=== PATIENT | female | born 1945 | race Caucasian/White ===

== ENCOUNTER 2022-04-04 09:03 | Day surgery (SDC) | payer BC, OTHER ==
[2022-04-03 10:20] VITALS: BMI 29.6
[2022-04-04] MEDS ORDERED: FENTANYL CITRATE/PF 50 MCG/ML VIAL ONE ×3 (12:38→17:13)
[2022-04-04] MEDS ORDERED: BUPIVACAINE LIPOSOME/PF (EXPAREL) 266 MG/20 ML VIAL ONE (12:39)
[2022-04-04] MEDS ORDERED: BUPIVACAINE HCL/PF 0.5% (5MG/ML) 10 ML VIAL ONE (12:39)
[2022-04-04] MEDS ORDERED: MIDAZOLAM HCL 2 MG/2 ML SINGLE DOSE VIAL ONE ×4 (12:39→15:54)
[2022-04-04] MEDS ORDERED: SODIUM CHLORIDE 0.9% P/F 10 ML VIAL IJ ONE (13:02)
[2022-04-04] MEDS ORDERED: BUPIVACAINE HCL 50 ML ONE (13:20)
[2022-04-04] MEDS ORDERED: ceFAZolin SODIUM 1 GM VIAL ONE ×2 (13:31→21:42)
[2022-04-04] MEDS ORDERED: TRANEXAMIC ACID 1000 MG/10 ML VIAL ONE (13:31)
[2022-04-04] MEDS ORDERED: ONDANSETRON 4 MG/2 ML VIAL ONE (13:31)
[2022-04-04] MEDS ORDERED: DEXAMETHASONE SOD PHOSPHATE 4 MG/1 ML VIAL ONE (13:31)
[2022-04-04] MEDS ORDERED: VANCOMYCIN 1,000 MG VIAL (RESTRICTED TO ID ONLY) ONE (13:37)
[2022-04-04] MEDS ORDERED: PROPOFOL 20 ML ONE ×2 (13:39→15:26)
[2022-04-04] MEDS ORDERED: fentaNYL CITRATE 250 MCG/5 ML VIAL ONE (15:55)
[2022-04-04] MEDS ORDERED: ACETAMINOPHEN INJECTION 100 ML IVPB ONE (16:55)
[2022-04-04] MEDS ORDERED: ONDANSETRON 4 MG/2 ML VIAL IVPUSH PRN ×2 (16:56→16:59)
[2022-04-04] MEDS ORDERED: oxyCODONE HCL 5 MG TABLET PO PRN (16:57)
[2022-04-04] MEDS ORDERED: ACETAMINOPHEN 1000 MG/100 ML BAG IVPB ONE (16:57)
[2022-04-04] MEDS ORDERED: ALBUTEROL SO4 HFA INHALER IH PRN (16:58)
[2022-04-04] MEDS ORDERED: PATIENT'S OWN MEDICATION (NON-FORMULARY) (Fluticasone Propionate [Flovent Hfa] 44 MCG Inha IH PRN (16:58)
[2022-04-04] MEDS ORDERED: MAGNESIUM HYDROX 2400MG/30ML ORAL SUSPENSION 30 ML CUP PO PRN (16:59)
[2022-04-04] MEDS ORDERED: MAG HYDROX/AL HYDROX/SIMETH 30 ML UNIT-DOSE CUP PO PRN (16:59)
[2022-04-04] MEDS ORDERED: LACTATED RINGERS SOLUTION 1,000 ML IV SCH (17:00)
[2022-04-04] MEDS ORDERED: LABETALOL HCL 5 MG/1 ML (100MG/20 ML VIAL) ONE (17:02)
[2022-04-04] MEDS ORDERED: diazePAM 5 MG TABLET PO PRN (17:03)
[2022-04-04] MEDS: LABETALOL HCL 5 MG/1 ML (100MG/20 ML VIAL) IVPUSH ONE ×2 (17:03→17:13)
[2022-04-04] MEDS ORDERED: diazePAM CARPU-JECT 10 MG/2 ML DISP.SYRIN IVPUSH PRN (17:04)
[2022-04-04] MEDS ORDERED: KETOROLAC TROMETHAMINE 30 MG/1 ML VIAL ONE (17:07)
[2022-04-04] MEDS: KETOROLAC TROMETHAMINE 30 MG/1 ML VIAL IVPUSH SCH ×2 (17:10→23:21)
[2022-04-04] MEDS ORDERED: DEXTROSE 5%-WATER - 100 ML IVPB ONE (21:42)
[2022-04-04] MEDS ORDERED: MOMETASONE FUROATE 220 MCG/IH INHALER IH PRN (22:00)
[2022-04-04] MEDS: SENNOSIDES/DOCUSATE COMBO (SENNA PLUS) TABLET (UD) PO SCH (22:23)
[2022-04-04] MEDS: oxyCODONE HCL 10 MG SUSTAINED ACTING TABLET PO SCH (22:23)
[2022-04-04] MEDS: ATORVASTATIN CA 20 MG TABLET (FP) PO SCH (22:24)
[2022-04-04] MEDS: ASPIRIN 81 MG CHEWABLE TABLETS PO SCH (22:24)
[2022-04-04] MEDS: LABETALOL HCL 100 MG TABLET (FP) PO SCH (22:25)
[2022-04-04] MEDS: CEFAZOLIN 2 GM in DEXTROSE 5%-WATER - 100 ML IVPB SCH (22:26)
[2022-04-04] MEDS: ACETAMINOPHEN 500 MG TABLET (FP) PO SCH (23:22)
[2022-04-05] MEDS ORDERED: ceFAZolin SODIUM 1 GM VIAL ONE ×2 (04:11→09:58)
[2022-04-05] MEDS ORDERED: DEXTROSE 5%-WATER - 100 ML IVPB ONE ×2 (04:11→09:57)
[2022-04-05] MEDS: ACETAMINOPHEN 500 MG TABLET (FP) PO SCH ×5 (04:17→23:58)
[2022-04-05] MEDS: CEFAZOLIN 2 GM in DEXTROSE 5%-WATER - 100 ML IVPB SCH ×2 (04:18→10:09)
[2022-04-05] MEDS: LEVOTHYROXINE NA 100 MCG TABLET (FP) PO SCH (06:28)
[2022-04-05 08:07] LABS: CALCIUM 8.9 mg/dl (8.5-10); CREATININE 1.1 mg/dl (0.55-1.3)
[2022-04-05 08:14] LABS: HEMATOCRIT 33.3 % (32.4-45.2); MCH 30.3 pg (25.7-33.7); MEAN CELL VOLUME 91.6 fl (80-96); MEAN PLT VOLUME 6.9 fl (7.5-11.1); RBC 3.63 10^6/uL (3.60-5.2); RDW 15.2 % (11.6-15.6); WHITE BLOOD COUNT 10.3 10^3/uL (4.0-10.8)
[2022-04-05] MEDS: oxyCODONE HCL 5 MG TABLET PO PRN ×3 (08:35→18:53)
[2022-04-05] MEDS: LABETALOL HCL 100 MG TABLET (FP) PO SCH ×2 (10:07→21:30)
[2022-04-05] MEDS: TRIAMTERENE AND HCTZ - 37.5 MG/25 MG CAPSULE PO SCH (10:07)
[2022-04-05] MEDS: oxyCODONE HCL 10 MG SUSTAINED ACTING TABLET PO SCH ×2 (10:07→21:30)
[2022-04-05] MEDS: PANTOPRAZOLE 40 MG TABLET PO SCH (10:07)
[2022-04-05] MEDS: CELECOXIB 200 MG CAPSULE PO SCH (10:07)
[2022-04-05] MEDS: LISINOPRIL 20 MG TABLET PO SCH (10:07)
[2022-04-05] MEDS: ASPIRIN 81 MG CHEWABLE TABLETS PO SCH ×2 (10:09→21:30)
[2022-04-05] MEDS: SENNOSIDES/DOCUSATE COMBO (SENNA PLUS) TABLET (UD) PO SCH ×2 (10:09→21:31)
[2022-04-05] MEDS: ATORVASTATIN CA 20 MG TABLET (FP) PO SCH (21:30)
[2022-04-06] MEDS: oxyCODONE HCL 5 MG TABLET PO PRN (06:04)
[2022-04-06] MEDS: ACETAMINOPHEN 500 MG TABLET (FP) PO SCH ×2 (06:05→11:18)
[2022-04-06] MEDS: LEVOTHYROXINE NA 100 MCG TABLET (FP) PO SCH (07:59)
[2022-04-06 08:08] VITALS: BP 113/43; PULSE 67; TEMP 98.4
[2022-04-06 08:20] LABS: HEMOGLOBIN 10.3 G/dL (10.7-15.3); MCH 31.5 pg (25.7-33.7); MCHC 34.4 g/dl (32.0-36.0); MEAN CELL VOLUME 91.4 fl (80-96); MEAN PLT VOLUME 7.2 fl (7.5-11.1); PLATELET COUNT 297.8 10^3/uL (134-434); RBC 3.28 10^6/uL (3.60-5.2); RDW 15.2 % (11.6-15.6); WHITE BLOOD COUNT 8.7 10^3/uL (4.0-10.8)
[2022-04-06] MEDS: SENNOSIDES/DOCUSATE COMBO (SENNA PLUS) TABLET (UD) PO SCH (09:49)
[2022-04-06] MEDS: oxyCODONE HCL 10 MG SUSTAINED ACTING TABLET PO SCH (09:49)
[2022-04-06] MEDS: PANTOPRAZOLE 40 MG TABLET PO SCH (09:49)
[2022-04-06] MEDS: CELECOXIB 200 MG CAPSULE PO SCH (09:50)
[2022-04-06] MEDS: ASPIRIN 81 MG CHEWABLE TABLETS PO SCH (09:50)
[2022-04-06] MEDS: TRIAMTERENE AND HCTZ - 37.5 MG/25 MG CAPSULE PO SCH (09:53)
[2022-04-06] MEDS: LABETALOL HCL 100 MG TABLET (FP) PO SCH (09:54)
[2022-04-06] MEDS: LISINOPRIL 20 MG TABLET PO SCH (09:54)
== END 2022-04-06 14:09 | disposition home or self-care (01) ==
LOC: FASUSAT 09:03 → FM/S 17:55 → FASUSAT 04-06 14:09
PROVIDERS: ATTEND Orthopaedic Surgery Adult Reconstructive Orthopaedic Surgery
PROC: 0SRD0J9 Replacement of Left Knee Joint with Synthetic Substitute, Cemented, Open Approach (ICD-10-PCS; principal; 2022-04-04 14:04)
DX: M17.12 Unilateral primary osteoarthritis, left knee (principal); M21.062 Valgus deformity, not elsewhere classified, left knee; J45.909 Unspecified asthma, uncomplicated; E03.9 Hypothyroidism, unspecified
CPT/HCPCS: 27447; C1776; 36415; 73560-TC-LT-FY; 80048; 85027; 88305-TC; 88311-TC; 94760; 97010-GP; 97116-GP; 97161-GP

== ENCOUNTER 2023-02-27 11:05 | Day surgery (SDC) | payer OTHER ==
[2023-02-18 15:50] VITALS: BMI 31.5
[2023-02-27] MEDS ORDERED: MIDAZOLAM HCL 2 MG/2 ML SINGLE DOSE VIAL ONE ×3 (11:10→14:31)
[2023-02-27] MEDS ORDERED: BUPIVACAINE LIPOSOME/PF (EXPAREL) 266 MG/20 ML VIAL ONE (12:00)
[2023-02-27] MEDS ORDERED: BUPIVACAINE HCL/PF 0.5% (5 MG/ML) 30 ML VIAL IJ ONE (12:00)
[2023-02-27] MEDS ORDERED: BUPIVACAINE HCL/PF 0.5% (5MG/ML) 10 ML VIAL ONE (12:59)
[2023-02-27] MEDS ORDERED: TRANEXAMIC ACID 1000 MG/10 ML VIAL ONE (16:04)
[2023-02-27] MEDS ORDERED: KETOROLAC TROMETHAMINE 30 MG/1 ML VIAL ONE (16:04)
[2023-02-27] MEDS ORDERED: DEXAMETHASONE SOD PHOSPHATE 4 MG/1 ML VIAL ONE (16:04)
[2023-02-27] MEDS ORDERED: PHENYLEPHRINE HCL 10 MG/1 ML SINGLE DOSE VIAL ONE (16:04)
[2023-02-27] MEDS ORDERED: ONDANSETRON 4 MG/2 ML VIAL ONE (16:04)
[2023-02-27] MEDS ORDERED: ceFAZolin SODIUM 1 GM VIAL ONE (16:04)
[2023-02-27] MEDS ORDERED: ACETAMINOPHEN INJECTION 100 ML IVPB ONE (16:27)
[2023-02-27] MEDS ORDERED: FENTANYL CITRATE/PF 50 MCG/ML VIAL ONE ×2 (16:28→16:48)
[2023-02-27] MEDS ORDERED: oxyCODONE HCL 5 MG TABLET PO PRN (16:33)
[2023-02-27] MEDS ORDERED: ACETAMINOPHEN 1000 MG/100 ML BAG IVPB ONE (16:33)
[2023-02-27] MEDS ORDERED: ONDANSETRON 4 MG/2 ML VIAL IVPUSH PRN ×2 (16:33→16:41)
[2023-02-27] MEDS ORDERED: ALBUTEROL SO4 HFA INHALER IH PRN (16:40)
[2023-02-27] MEDS ORDERED: TRIAMTERENE AND HCTZ - 37.5 MG/25 MG CAPSULE PO PRN (16:40)
[2023-02-27] MEDS ORDERED: MAG HYDROX/AL HYDROX/SIMETH 30 ML UNIT-DOSE CUP PO PRN (16:41)
[2023-02-27] MEDS ORDERED: MAGNESIUM HYDROX 2400MG/30ML ORAL SUSPENSION 30 ML CUP PO PRN (16:41)
[2023-02-27] MEDS: ACETAMINOPHEN 500 MG TABLET (FP) PO SCH ×2 (16:42→22:07)
[2023-02-27] MEDS ORDERED: LACTATED RINGERS SOLUTION 1,000 ML IV SCH (16:45)
[2023-02-27] MEDS: oxyCODONE HCL 5 MG TABLET PO PRN ×2 (17:00→22:07)
[2023-02-27] MEDS: oxyCODONE HCL 10 MG SUSTAINED ACTING TABLET PO SCH (21:17)
[2023-02-27] MEDS: SENNOSIDES/DOCUSATE COMBO (SENNA PLUS) TABLET (UD) PO SCH (21:18)
[2023-02-27] MEDS: LABETALOL HCL 100 MG TABLET (FP) PO SCH (21:18)
[2023-02-27] MEDS: ATORVASTATIN CA 20 MG TABLET (FP) PO SCH (21:18)
[2023-02-27] MEDS: HEPARIN NA (PORCINE) 5,000 UNITS/ML 1ML VIAL SQ SCH (21:19)
[2023-02-27] MEDS ORDERED: ASPIRIN 81 MG CHEWABLE TABLETS ONE (21:26)
[2023-02-27] MEDS ORDERED: ASPIRIN 325 MG TABLET PO SCH (22:00)
[2023-02-27] MEDS ORDERED: CELECOXIB 200 MG CAPSULE PO SCH (22:00)
[2023-02-27] MEDS: CELECOXIB 100 MG CAPSULE PO SCH (22:07)
[2023-02-27] MEDS: CEFAZOLIN SODIUM 2 GM in DEXTROSE 5%-WATER 100 ML IVPB SCH ×2 (22:08→22:09)
[2023-02-27] MEDS: MOMETASONE FUROATE 220 MCG/IH INHALER IH SCH (22:10)
[2023-02-27] MEDS: KETOROLAC TROMETHAMINE 30 MG/1 ML VIAL IVPUSH SCH (22:10)
[2023-02-27 22:48] VITALS: RESP 18
[2023-02-28] MEDS: KETOROLAC TROMETHAMINE 30 MG/1 ML VIAL IVPUSH SCH (00:24)
[2023-02-28] MEDS: ACETAMINOPHEN 500 MG TABLET (FP) PO SCH ×4 (04:21→23:07)
[2023-02-28] MEDS: CEFAZOLIN SODIUM 2 GM in DEXTROSE 5%-WATER 100 ML IVPB SCH (04:21)
[2023-02-28] MEDS: LEVOTHYROXINE NA 100 MCG TABLET (FP) PO SCH (06:23)
[2023-02-28 08:27] LABS: HEMATOCRIT 31.9 % (32.4-45.2); HEMOGLOBIN 10.3 G/dL (10.7-15.3); MCH 29.8 pg (25.7-33.7); MCHC 32.3 g/dl (32.0-36.0); MEAN CELL VOLUME 92.2 fl (80-96); MEAN PLT VOLUME 7.7 fl (7.5-11.1); PLATELET COUNT 272.2 10^3/uL (134-434); RBC 3.46 10^6/uL (3.60-5.2); RDW 14.9 % (11.6-15.6); WHITE BLOOD COUNT 9.8 10^3/uL (4.0-10.8)
[2023-02-28 08:32] LABS: CALCIUM 8.5 mg/dl (8.5-10); CREATININE 1.3 mg/dl (0.55-1.3); POTASSIUM 4.3 mmol/L (3.5-5.1)
[2023-02-28] MEDS: LISINOPRIL 20 MG TABLET PO SCH (09:21)
[2023-02-28] MEDS: oxyCODONE HCL 10 MG SUSTAINED ACTING TABLET PO SCH ×2 (09:21→22:07)
[2023-02-28] MEDS: CELECOXIB 100 MG CAPSULE PO SCH ×2 (09:22→22:09)
[2023-02-28] MEDS: SENNOSIDES/DOCUSATE COMBO (SENNA PLUS) TABLET (UD) PO SCH ×2 (09:22→22:08)
[2023-02-28] MEDS: LABETALOL HCL 100 MG TABLET (FP) PO SCH ×2 (09:22→22:11)
[2023-02-28] MEDS: HEPARIN NA (PORCINE) 5,000 UNITS/ML 1ML VIAL SQ SCH ×2 (09:23→22:09)
[2023-02-28] MEDS: ASPIRIN COATED 81 MG TABLET.EC PO SCH ×2 (09:33→22:09)
[2023-02-28] MEDS ORDERED: PANTOPRAZOLE 40 MG TABLET PO SCH (10:00)
[2023-02-28] MEDS: MOMETASONE FUROATE 220 MCG/IH INHALER IH SCH (22:05)
[2023-02-28] MEDS: ATORVASTATIN CA 20 MG TABLET (FP) PO SCH (22:09)
[2023-03-01] MEDS: LEVOTHYROXINE NA 100 MCG TABLET (FP) PO SCH (06:08)
[2023-03-01] MEDS: ACETAMINOPHEN 500 MG TABLET (FP) PO SCH ×3 (06:08→17:49)
[2023-03-01 08:43] LABS: HEMATOCRIT 29.9 % (32.4-45.2); HEMOGLOBIN 9.6 G/dL (10.7-15.3); MCH 29.9 pg (25.7-33.7); MCHC 32.2 g/dl (32.0-36.0); MEAN CELL VOLUME 92.8 fl (80-96); MEAN PLT VOLUME 8.1 fl (7.5-11.1); RBC 3.22 10^6/uL (3.60-5.2); RDW 15.3 % (11.6-15.6); WHITE BLOOD COUNT 8.6 10^3/uL (4.0-10.8)
[2023-03-01] MEDS: ASPIRIN COATED 81 MG TABLET.EC PO SCH (09:27)
[2023-03-01] MEDS: CELECOXIB 100 MG CAPSULE PO SCH (09:27)
[2023-03-01] MEDS: LISINOPRIL 20 MG TABLET PO SCH (09:27)
[2023-03-01] MEDS: oxyCODONE HCL 10 MG SUSTAINED ACTING TABLET PO SCH (09:28)
[2023-03-01] MEDS: HEPARIN NA (PORCINE) 5,000 UNITS/ML 1ML VIAL SQ SCH (09:29)
[2023-03-01] MEDS: SENNOSIDES/DOCUSATE COMBO (SENNA PLUS) TABLET (UD) PO SCH (09:29)
[2023-03-01] MEDS: LABETALOL HCL 100 MG TABLET (FP) PO SCH (09:29)
[2023-03-01 19:04] VITALS: BP 109/52; PULSE 70; TEMP 98.3
== END 2023-03-01 19:45 | disposition home or self-care (01) ==
LOC: FASU 11:05 → FM/S 17:36 → FASU 03-01 19:45
PROVIDERS: ATTEND Orthopaedic Surgery Adult Reconstructive Orthopaedic Surgery
PROC: 0MNN0ZZ Release Right Knee Bursa and Ligament, Open Approach (ICD-10-PCS; 2023-02-27)
PROC: 0SRC0JA Replacement of Right Knee Joint with Synthetic Substitute, Uncemented, Open Approach (ICD-10-PCS; principal; 2023-02-27 13:47)
DX: M17.11 Unilateral primary osteoarthritis, right knee (principal); I10 Essential (primary) hypertension; E03.9 Hypothyroidism, unspecified
CPT/HCPCS: 27425; 27447; C1776; 36415; 73560-TC-RT-FY; 80048; 85027; 88305-TC; 88311-TC; 94760; 97010-GP; 97116-GP; 97163-GP; C1713; C1889; J1644

== ENCOUNTER 2023-03-05 17:55 | Inpatient (IN) | payer OTHER ==
[2023-03-05 18:31] LABS: HEMATOCRIT 33.9 % (32.4-45.2); HEMOGLOBIN 11.2 G/dL (10.7-15.3); MCH 30.9 pg (25.7-33.7); MEAN CELL VOLUME 93.7 fl (80-96); MEAN PLT VOLUME 7.6 fl (7.5-11.1); PLATELET COUNT 396.3 10^3/uL (134-434); RBC 3.62 10^6/uL (3.60-5.2); RDW 14.9 % (11.6-15.6); WHITE BLOOD COUNT 12.9 10^3/uL (4.0-10.8)
[2023-03-05] MEDS ORDERED: morphine CARPU-JECT 4 MG/1 ML DISP.SYRIN IVPUSH ONE (18:35)
[2023-03-05] MEDS ORDERED: morphine SULFATE 4 MG/ML VIAL ONE ×2 (18:38→19:30)
[2023-03-05 18:40] LABS: INR 1.05 (0.83-1.09); PROTHROMBIN TIME (PATIENT) 12.1 SEC (9.7-13.0)
[2023-03-05 18:43] LABS: ACTIVATED PTT 28.4 SECONDS (25.2-36.5)
[2023-03-05 18:47] LABS: ALBUMIN 3.5 g/dl (3.4-5.0); BILIRUBIN,TOTAL 2.3 mg/dl (0.2-1); TOT PROT 6.7 g/dl (6.4-8.2)
[2023-03-05] MEDS ORDERED: morphine CARPU-JECT 2 MG/1 ML DISP.SYRIN IVPUSH ONE (19:28)
[2023-03-05] MEDS ORDERED: ACETAMINOPHEN 1000 MG/100 ML BAG IVPB ONE (19:28)
[2023-03-05] MEDS ORDERED: ACETAMINOPHEN INJECTION 100 ML IVPB ONE (19:30)
[2023-03-05 19:40] LABS: POTASSIUM 4.3 mmol/L (3.5-5.1)
[2023-03-05 19:43] LABS: PLATELET ESTIMATE ADEQUATE
[2023-03-05] MEDS ORDERED: ALBUTEROL SO4 HFA INHALER IH PRN (21:08)
[2023-03-05] MEDS ORDERED: LABETALOL HCL 100 MG TABLET (FP) PO SCH (22:00)
[2023-03-05 22:25] VITALS: BMI 32.1
[2023-03-06] MEDS ORDERED: DEXTROSE 5%-0.45% SALINE 1,000 ML IV SCH (00:01)
[2023-03-06] MEDS ORDERED: ACETAMINOPHEN 1000 MG/100 ML BAG IVPB PRN (06:17)
[2023-03-06] MEDS ORDERED: MIDAZOLAM HCL 2 MG/2 ML SINGLE DOSE VIAL ONE (08:03)
[2023-03-06] MEDS ORDERED: PROPOFOL 20 ML ONE ×4 (08:03→12:11)
[2023-03-06] MEDS ORDERED: oxyCODONE HCL 5 MG TABLET PO PRN (08:16)
[2023-03-06] MEDS ORDERED: ONDANSETRON 4 MG/2 ML VIAL IVPUSH PRN ×2 (08:16→12:34)
[2023-03-06] MEDS ORDERED: BUPIVACAINE HCL/PF 0.5% (5MG/ML) 10 ML VIAL ONE (08:22)
[2023-03-06] MEDS ORDERED: ACETAMINOPHEN INJECTION 100 ML IVPB ONE ×2 (08:23→23:39)
[2023-03-06] MEDS: LEVOTHYROXINE NA 100 MCG TABLET (FP) PO SCH (08:23)
[2023-03-06] MEDS ORDERED: LACTATED RINGERS SOLUTION 1,000 ML IV SCH ×2 (08:30→12:45)
[2023-03-06] MEDS ORDERED: TRANEXAMIC ACID 1000 MG/10 ML VIAL ONE (09:37)
[2023-03-06] MEDS ORDERED: ceFAZolin SODIUM 1 GM VIAL ONE ×2 (09:37→13:43)
[2023-03-06] MEDS ORDERED: VANCOMYCIN 1,000 MG VIAL (RESTRICTED TO ID ONLY) ONE (09:37)
[2023-03-06] MEDS ORDERED: LEVOTHYROXINE NA 100 MCG TABLET (FP) PO SCH (10:00)
[2023-03-06] MEDS ORDERED: MAG HYDROX/AL HYDROX/SIMETH 30 ML UNIT-DOSE CUP PO PRN (12:34)
[2023-03-06] MEDS ORDERED: MAGNESIUM HYDROX 2400MG/30ML ORAL SUSPENSION 30 ML CUP PO PRN (12:34)
[2023-03-06] MEDS ORDERED: KETOROLAC TROMETHAMINE 30 MG/1 ML VIAL ONE (13:11)
[2023-03-06] MEDS ORDERED: HYDROmorphone HCL/PF 1 MG/ML VIAL ONE (13:16)
[2023-03-06] MEDS: LABETALOL HCL 100 MG TABLET (FP) PO SCH (15:15)
[2023-03-06] MEDS: LISINOPRIL 20 MG TABLET PO SCH (15:56)
[2023-03-06] MEDS: oxyCODONE HCL 5 MG TABLET PO PRN ×2 (16:28→21:51)
[2023-03-06] MEDS: CEFAZOLIN SODIUM 2 GM in DEXTROSE 5%-WATER 100 ML IVPB SCH ×2 (16:29→23:00)
[2023-03-06] MEDS: SENNOSIDES/DOCUSATE COMBO (SENNA PLUS) TABLET (UD) PO SCH (21:51)
[2023-03-06] MEDS: CELECOXIB 100 MG CAPSULE PO SCH (21:52)
[2023-03-06] MEDS: ASPIRIN COATED 81 MG TABLET.EC PO SCH (21:52)
[2023-03-07] MEDS: CEFAZOLIN SODIUM 2 GM in DEXTROSE 5%-WATER 100 ML IVPB SCH (05:42)
[2023-03-07] MEDS: LABETALOL HCL 100 MG TABLET (FP) PO SCH ×3 (06:42→21:30)
[2023-03-07 07:51] LABS: MCH 30.3 pg (25.7-33.7); MEAN CELL VOLUME 94.7 fl (80-96); MEAN PLT VOLUME 7.6 fl (7.5-11.1); PLATELET COUNT 297.3 10^3/uL (134-434); RBC 2.64 10^6/uL (3.60-5.2); RDW 15.4 % (11.6-15.6); WHITE BLOOD COUNT 9.7 10^3/uL (4.0-10.8)
[2023-03-07] MEDS: LEVOTHYROXINE NA 100 MCG TABLET (FP) PO SCH (07:53)
[2023-03-07 08:13] LABS: CREATININE 0.9 mg/dl (0.55-1.3); POTASSIUM 4.4 mmol/L (3.5-5.1)
[2023-03-07] MEDS: oxyCODONE HCL 5 MG TABLET PO PRN ×4 (08:42→21:57)
[2023-03-07] MEDS: ACETAMINOPHEN 325 MG TABLET (FP) PO PRN ×2 (08:42→15:10)
[2023-03-07] MEDS: MULTIVITAMINS (DAILY MVI) TABLET (FP) PO SCH (09:07)
[2023-03-07] MEDS: PANTOPRAZOLE 40 MG TABLET PO SCH (09:07)
[2023-03-07] MEDS: LISINOPRIL 20 MG TABLET PO SCH (09:07)
[2023-03-07] MEDS: SENNOSIDES/DOCUSATE COMBO (SENNA PLUS) TABLET (UD) PO SCH ×2 (09:07→21:30)
[2023-03-07] MEDS: ASPIRIN COATED 81 MG TABLET.EC PO SCH ×2 (09:07→21:30)
[2023-03-07] MEDS: CELECOXIB 100 MG CAPSULE PO SCH ×2 (09:07→21:30)
[2023-03-08] MEDS: LEVOTHYROXINE NA 100 MCG TABLET (FP) PO SCH (06:47)
[2023-03-08] MEDS: oxyCODONE HCL 5 MG TABLET PO PRN ×4 (06:47→21:38)
[2023-03-08 08:35] LABS: HEMATOCRIT 24.2 % (32.4-45.2); HEMOGLOBIN 7.8 G/dL (10.7-15.3); MCH 30.6 pg (25.7-33.7); MCHC 32.4 g/dl (32.0-36.0); MEAN CELL VOLUME 94.5 fl (80-96); MEAN PLT VOLUME 7.7 fl (7.5-11.1); PLATELET COUNT 372.1 10^3/uL (134-434); RBC 2.56 10^6/uL (3.60-5.2); RDW 14.7 % (11.6-15.6); WHITE BLOOD COUNT 10.2 10^3/uL (4.0-10.8)
[2023-03-08] MEDS: LISINOPRIL 20 MG TABLET PO SCH (09:26)
[2023-03-08] MEDS: PANTOPRAZOLE 40 MG TABLET PO SCH (09:26)
[2023-03-08] MEDS: MULTIVITAMINS (DAILY MVI) TABLET (FP) PO SCH (09:26)
[2023-03-08] MEDS: ASPIRIN COATED 81 MG TABLET.EC PO SCH ×2 (09:26→21:30)
[2023-03-08] MEDS: SENNOSIDES/DOCUSATE COMBO (SENNA PLUS) TABLET (UD) PO SCH ×2 (09:26→21:30)
[2023-03-08] MEDS: CELECOXIB 100 MG CAPSULE PO SCH ×2 (09:26→21:30)
[2023-03-08] MEDS: ACETAMINOPHEN 325 MG TABLET (FP) PO PRN (09:27)
[2023-03-08] MEDS: LABETALOL HCL 100 MG TABLET (FP) PO SCH ×2 (09:27→21:30)
[2023-03-09] MEDS: LEVOTHYROXINE NA 100 MCG TABLET (FP) PO SCH (06:15)
[2023-03-09 09:00] LABS: ALBUMIN 2.3 g/dl (3.4-5.0); BILIRUBIN,TOTAL 0.6 mg/dl (0.2-1); CALCIUM 8.2 mg/dl (8.5-10); CREATININE 0.9 mg/dl (0.55-1.3); POTASSIUM 4.5 mmol/L (3.5-5.1); TOT PROT 4.9 g/dl (6.4-8.2)
[2023-03-09] MEDS: ACETAMINOPHEN 325 MG TABLET (FP) PO PRN (09:19)
[2023-03-09] MEDS: SENNOSIDES/DOCUSATE COMBO (SENNA PLUS) TABLET (UD) PO SCH ×2 (09:20→21:51)
[2023-03-09] MEDS: ASPIRIN COATED 81 MG TABLET.EC PO SCH ×2 (09:21→21:51)
[2023-03-09] MEDS: LABETALOL HCL 100 MG TABLET (FP) PO SCH ×2 (09:21→21:51)
[2023-03-09] MEDS: MULTIVITAMINS (DAILY MVI) TABLET (FP) PO SCH (09:21)
[2023-03-09] MEDS: PANTOPRAZOLE 40 MG TABLET PO SCH (09:22)
[2023-03-09] MEDS: CELECOXIB 100 MG CAPSULE PO SCH ×2 (09:22→21:51)
[2023-03-09] MEDS: LISINOPRIL 20 MG TABLET PO SCH (09:22)
[2023-03-09 12:43] LABS: BASO % 0.7 % (0-2.0); EOS % 6.6 % (0-4.5); HEMATOCRIT 34.7 % (32.4-45.2); HEMOGLOBIN 11.5 GM/dL (10.7-15.3); LYMPH % 24.6 % (8-40); MCH 29.8 pg (25.7-33.7); MCHC 33.3 g/dl (32.0-36.0); MEAN CELL VOLUME 89.6 fl (80-96); MEAN PLT VOLUME 6.8 fl (7.5-11.1); MONO % 7.2 % (3.8-10.2); NEUT % 60.9 % (42.8-82.8); PLATELET COUNT 248 10^3/uL (134-434); RBC 3.87 M/mm3 (3.60-5.2); RDW 14.9 % (11.6-15.6); WHITE BLOOD COUNT 5.3 K/mm3 (4.0-10.0)
[2023-03-09] MEDS: ACETAMINOPHEN 1000 MG/100 ML BAG IVPB PRN (15:31)
[2023-03-09] MEDS ORDERED: oxyCODONE HCL 5 MG TABLET PO PRN (17:48)
[2023-03-09] MEDS: POLYETHYLENE GLYCOL (HEALTHYLAX) 3350 17 GM PACKET PO SCH (21:51)
[2023-03-09] MEDS: DOCUSATE SODIUM 100 MG CAPSULE (FP) PO SCH (21:51)
[2023-03-10] MEDS: LEVOTHYROXINE NA 100 MCG TABLET (FP) PO SCH (06:17)
[2023-03-10] MEDS: SENNOSIDES/DOCUSATE COMBO (SENNA PLUS) TABLET (UD) PO SCH ×2 (09:12→21:19)
[2023-03-10] MEDS: ASPIRIN COATED 81 MG TABLET.EC PO SCH ×2 (09:12→21:20)
[2023-03-10] MEDS: LISINOPRIL 20 MG TABLET PO SCH (09:12)
[2023-03-10] MEDS: MULTIVITAMINS (DAILY MVI) TABLET (FP) PO SCH (09:12)
[2023-03-10] MEDS: PANTOPRAZOLE 40 MG TABLET PO SCH (09:12)
[2023-03-10] MEDS: POLYETHYLENE GLYCOL (HEALTHYLAX) 3350 17 GM PACKET PO SCH ×2 (09:12→21:19)
[2023-03-10] MEDS: oxyCODONE HCL 5 MG TABLET PO PRN ×3 (09:13→23:43)
[2023-03-10] MEDS: CELECOXIB 100 MG CAPSULE PO SCH ×2 (09:14→21:20)
[2023-03-10] MEDS: LABETALOL HCL 100 MG TABLET (FP) PO SCH ×2 (09:14→21:20)
[2023-03-10] MEDS: ACETAMINOPHEN 325 MG TABLET (FP) PO PRN ×2 (09:14→19:43)
[2023-03-10] MEDS ORDERED: SODIUM PHOSPHATE/NA BIPHOS 133 ML ENEMA RC ONE (09:41)
[2023-03-10] MEDS: DOCUSATE SODIUM 100 MG CAPSULE (FP) PO SCH (21:20)
[2023-03-11] MEDS: LEVOTHYROXINE NA 100 MCG TABLET (FP) PO SCH (06:32)
[2023-03-11 08:14] LABS: ALBUMIN 2.5 g/dl (3.4-5.0); BILIRUBIN,TOTAL 0.5 mg/dl (0.2-1); CALCIUM 8.5 mg/dl (8.5-10); CREATININE 0.8 mg/dl (0.55-1.3); POTASSIUM 4.6 mmol/L (3.5-5.1); TOT PROT 5.3 g/dl (6.4-8.2)
[2023-03-11 09:15] LABS: BASO % 0.5 % (0-2.0); EOS % 4.9 % (0-4.5); HEMATOCRIT 22.3 % (32.4-45.2); HEMOGLOBIN 7.6 GM/dL (10.7-15.3); LYMPH % 9.6 % (8-40); MCH 30.4 pg (25.7-33.7); MCHC 34.1 g/dl (32.0-36.0); MEAN CELL VOLUME 89.4 fl (80-96); MEAN PLT VOLUME 6.6 fl (7.5-11.1); MONO % 6.1 % (3.8-10.2); NEUT % 78.9 % (42.8-82.8); PLATELET COUNT 458 10^3/uL (134-434); RDW 14.4 % (11.6-15.6); WHITE BLOOD COUNT 12.2 K/mm3 (4.0-10.0)
[2023-03-11] MEDS ORDERED: ERGOCALCIFEROL (VIT D2) 50,000 UNIT (1.25 MG) CAPSULE PO SCH (10:00)
[2023-03-11] MEDS: ASPIRIN COATED 81 MG TABLET.EC PO SCH ×2 (10:15→21:27)
[2023-03-11] MEDS: ACETAMINOPHEN 325 MG TABLET (FP) PO PRN ×2 (10:15→18:27)
[2023-03-11] MEDS: LISINOPRIL 20 MG TABLET PO SCH (10:16)
[2023-03-11] MEDS: MULTIVITAMINS (DAILY MVI) TABLET (FP) PO SCH (10:16)
[2023-03-11] MEDS: PANTOPRAZOLE 40 MG TABLET PO SCH (10:16)
[2023-03-11] MEDS: LABETALOL HCL 100 MG TABLET (FP) PO SCH ×2 (10:16→21:27)
[2023-03-11] MEDS: CELECOXIB 100 MG CAPSULE PO SCH ×2 (11:04→21:27)
[2023-03-11] MEDS: POLYETHYLENE GLYCOL (HEALTHYLAX) 3350 17 GM PACKET PO SCH ×2 (11:04→21:44)
[2023-03-11] MEDS: SENNOSIDES/DOCUSATE COMBO (SENNA PLUS) TABLET (UD) PO SCH ×2 (11:05→21:44)
[2023-03-11] MEDS: oxyCODONE HCL 5 MG TABLET PO PRN ×2 (14:21→18:28)
[2023-03-11] MEDS: DOCUSATE SODIUM 100 MG CAPSULE (FP) PO SCH (21:43)
[2023-03-12] MEDS: LEVOTHYROXINE NA 100 MCG TABLET (FP) PO SCH (06:04)
[2023-03-12] MEDS: oxyCODONE HCL 5 MG TABLET PO PRN ×3 (06:04→19:55)
[2023-03-12] MEDS: ACETAMINOPHEN 325 MG TABLET (FP) PO PRN (06:05)
[2023-03-12] MEDS: LABETALOL HCL 100 MG TABLET (FP) PO SCH ×2 (09:47→21:36)
[2023-03-12] MEDS: SENNOSIDES/DOCUSATE COMBO (SENNA PLUS) TABLET (UD) PO SCH ×2 (09:47→22:49)
[2023-03-12] MEDS: LISINOPRIL 20 MG TABLET PO SCH (09:48)
[2023-03-12] MEDS: PANTOPRAZOLE 40 MG TABLET PO SCH (09:48)
[2023-03-12] MEDS: CELECOXIB 100 MG CAPSULE PO SCH ×2 (09:49→21:36)
[2023-03-12] MEDS: ASPIRIN COATED 81 MG TABLET.EC PO SCH ×2 (09:49→21:36)
[2023-03-12] MEDS: POLYETHYLENE GLYCOL (HEALTHYLAX) 3350 17 GM PACKET PO SCH ×2 (11:16→22:49)
[2023-03-12] MEDS: MULTIVITAMINS (DAILY MVI) TABLET (FP) PO SCH (19:32)
[2023-03-12] MEDS: DOCUSATE SODIUM 100 MG CAPSULE (FP) PO SCH (22:49)
[2023-03-13] MEDS: LEVOTHYROXINE NA 100 MCG TABLET (FP) PO SCH (06:16)
[2023-03-13 08:25] LABS: CALCIUM 8.4 mg/dl (8.5-10); CREATININE 0.9 mg/dl (0.55-1.3); MAGNESIUM 2.1 mg/dL (1.8-2.4); PHOSPHOROUS 3.5 mg/dl (2.5-4.9); POTASSIUM 4.5 mmol/L (3.5-5.1)
[2023-03-13 09:24] LABS: HEMATOCRIT 25.8 % (32.4-45.2); HEMOGLOBIN 8.9 GM/dL (10.7-15.3); MCH 30.5 pg (25.7-33.7); MCHC 34.5 g/dl (32.0-36.0); MEAN CELL VOLUME 88.4 fl (80-96); MEAN PLT VOLUME 6.7 fl (7.5-11.1); PLATELET COUNT 548 10^3/uL (134-434); RBC 2.91 M/mm3 (3.60-5.2); RDW 14.6 % (11.6-15.6); WHITE BLOOD COUNT 9.4 K/mm3 (4.0-10.0)
[2023-03-13] MEDS: PANTOPRAZOLE 40 MG TABLET PO SCH (09:34)
[2023-03-13] MEDS: CELECOXIB 100 MG CAPSULE PO SCH ×2 (09:34→21:17)
[2023-03-13] MEDS: LISINOPRIL 20 MG TABLET PO SCH (09:34)
[2023-03-13] MEDS: LABETALOL HCL 100 MG TABLET (FP) PO SCH ×2 (09:34→21:17)
[2023-03-13] MEDS: ASPIRIN COATED 81 MG TABLET.EC PO SCH ×2 (09:35→21:17)
[2023-03-13] MEDS: oxyCODONE HCL 5 MG TABLET PO PRN ×3 (09:35→21:21)
[2023-03-13] MEDS ORDERED: Methylnaltrexone Bromide 12 MG/0.6 ML KIT SQ SCH ×2 (10:00)
[2023-03-13 10:08] LABS: LYMPH % 11.3 % (8-40); NEUT % 72.9 % (42.8-82.8)
[2023-03-13 10:09] LABS: BASO % 0.7 % (0-2.0); EOS % 6.3 % (0-4.5); MONO % 8.8 % (3.8-10.2)
[2023-03-13] MEDS: MULTIVITAMINS (DAILY MVI) TABLET (FP) PO SCH (11:07)
[2023-03-13] MEDS: ACETAMINOPHEN 1000 MG/100 ML BAG IVPB PRN (12:17)
[2023-03-14] MEDS: LEVOTHYROXINE NA 100 MCG TABLET (FP) PO SCH (06:50)
[2023-03-14] MEDS ORDERED: METHYLNALTREXONE BROMIDE 8 MG/0.4 ML SYRINGE SQ SCH ×2 (08:13→10:00)
[2023-03-14 08:38] LABS: CALCIUM 8.5 mg/dl (8.5-10); CREATININE 0.8 mg/dl (0.55-1.3); POTASSIUM 4.4 mmol/L (3.5-5.1)
[2023-03-14 09:11] VITALS: BP 159/67; PULSE 86; RESP 18; TEMP 98.5
[2023-03-14] MEDS: MULTIVITAMINS (DAILY MVI) TABLET (FP) PO SCH (09:20)
[2023-03-14] MEDS: LABETALOL HCL 100 MG TABLET (FP) PO SCH (09:20)
[2023-03-14] MEDS: LISINOPRIL 20 MG TABLET PO SCH (09:20)
[2023-03-14] MEDS: oxyCODONE HCL 5 MG TABLET PO PRN (09:21)
[2023-03-14] MEDS: CELECOXIB 100 MG CAPSULE PO SCH (09:21)
[2023-03-14] MEDS: PANTOPRAZOLE 40 MG TABLET PO SCH (09:21)
[2023-03-14] MEDS: ASPIRIN COATED 81 MG TABLET.EC PO SCH (09:21)
[2023-03-14 09:57] LABS: BASO % 0.8 % (0-2.0); EOS % 5.4 % (0-4.5); HEMATOCRIT 28.3 % (32.4-45.2); HEMOGLOBIN 10.1 GM/dL (10.7-15.3); LYMPH % 11.7 % (8-40); MCH 31.2 pg (25.7-33.7); MCHC 35.5 g/dl (32.0-36.0); MEAN CELL VOLUME 87.8 fl (80-96); MEAN PLT VOLUME 7.3 fl (7.5-11.1); MONO % 7.9 % (3.8-10.2); NEUT % 74.2 % (42.8-82.8); PLATELET COUNT 534 10^3/uL (134-434); RBC 3.22 M/mm3 (3.60-5.2); RDW 14.5 % (11.6-15.6); WHITE BLOOD COUNT 9.7 K/mm3 (4.0-10.0)
[2023-03-15] MEDS ORDERED: ERGOCALCIFEROL (VIT D2) 50,000 UNIT (1.25 MG) CAPSULE PO SCH (10:00)
== END 2023-03-14 13:48 | disposition home or self-care (01) | DRG 488 ==
LOC: FER 17:55 → FM/S 18:28
PROVIDERS: ADMIT Student in an Organized Health Care Education/Training Program; ATTEND Internal Medicine
PROC: 0S9C00Z Drainage of Right Knee Joint with Drainage Device, Open Approach (ICD-10-PCS; 2023-03-06)
PROC: 0SPC09Z Removal of Liner from Right Knee Joint, Open Approach (ICD-10-PCS; 2023-03-06)
PROC: 0QSG04Z Reposition Right Tibia with Internal Fixation Device, Open Approach (ICD-10-PCS; 2023-03-06)
PROC: 0SUT09Z Supplement Right Knee Joint, Femoral Surface with Liner, Open Approach (ICD-10-PCS; 2023-03-06)
PROC: 0SPC09Z Removal of Liner from Right Knee Joint, Open Approach (ICD-10-PCS; 2023-03-06)
PROC: 0SUV09Z Supplement Right Knee Joint, Tibial Surface with Liner, Open Approach (ICD-10-PCS; principal; 2023-03-06 10:01)
PROC: 30233N1 Transfusion of Nonautologous Red Blood Cells into Peripheral Vein, Percutaneous Approach (ICD-10-PCS; 2023-03-12)
DX: S82.151A Displaced fracture of right tibial tuberosity, initial encounter for closed fracture (principal); D62 Acute posthemorrhagic anemia; M97.8XXA Periprosthetic fracture around other internal prosthetic joint, initial encounter; X58.XXXA Exposure to other specified factors, initial encounter; Y93.9 Activity, unspecified; Y92.89 Other specified places as the place of occurrence of the external cause; Y99.9 Unspecified external cause status; Z96.659 Presence of unspecified artificial knee joint; I10 Essential (primary) hypertension; M25.561 Pain in right knee; J45.909 Unspecified asthma, uncomplicated; E03.9 Hypothyroidism, unspecified; E78.5 Hyperlipidemia, unspecified; K21.9 Gastro-esophageal reflux disease without esophagitis
CPT/HCPCS: 0241U-QW; 36415; 36430; 73552-TC-RT-FY; 73560-TC-RT-FY; 73590-TC-RT-FY; 80048; 80053; 82306; 83735; 84100; 85025; 85027; 85610; 85730; 86850; 86900; 86901; 86922; 88304-TC; 88305-TC; 88311-TC; 93005; 94760; 97116-GP; 97162-GP; 99285-25; C1713; C1776; C1889; C9803-CS; P9058; U0003; U0005

== ENCOUNTER 2023-03-19 17:36 | Inpatient (IN) | payer OTHER ==
[2023-03-19 19:51] LABS: HEMATOCRIT 35.4 % (32.4-45.2); HEMOGLOBIN 11.7 G/dL (10.7-15.3); MCH 31.7 pg (25.7-33.7); MEAN CELL VOLUME 95.9 fl (80-96); PLATELET COUNT 616.8 10^3/uL (134-434); RBC 3.69 10^6/uL (3.60-5.2); RDW 15.3 % (11.6-15.6); WHITE BLOOD COUNT 11.1 10^3/uL (4.0-10.8)
[2023-03-19 19:55] LABS: INR 1.06 (0.83-1.09); PROTHROMBIN TIME (PATIENT) 12.2 SEC (9.7-13.0)
[2023-03-19 19:57] LABS: ACTIVATED PTT 32.5 SECONDS (25.2-36.5)
[2023-03-19 20:01] LABS: ALBUMIN 3.1 g/dl (3.4-5.0); BILIRUBIN,TOTAL 0.5 mg/dl (0.2-1); CALCIUM 8.6 mg/dl (8.5-10); CREATININE 0.9 mg/dl (0.55-1.3); MAGNESIUM 2.1 mg/dL (1.8-2.4); POTASSIUM 4.5 mmol/L (3.5-5.1)
[2023-03-19 20:39] LABS: PLATELET ESTIMATE INCREASED
[2023-03-19] MEDS ORDERED: ceFAZolin SODIUM 1 GM VIAL IM ONE (21:20)
[2023-03-19] MEDS ORDERED: ceFAZolin SODIUM 1 GM VIAL ONE (21:54)
[2023-03-19] MEDS ORDERED: WATER FOR INJ,STERILE 20 ML ONE (21:56)
[2023-03-19] MEDS ORDERED: ALBUTEROL SO4 HFA INHALER IH PRN (23:27)
[2023-03-20 04:29] VITALS: BMI 32.1
[2023-03-20] MEDS: oxyCODONE HCL 5 MG TABLET PO PRN ×3 (06:24→20:08)
[2023-03-20] MEDS: LEVOTHYROXINE NA 100 MCG TABLET (FP) PO SCH (06:25)
[2023-03-20 08:35] LABS: CALCIUM 8.6 mg/dl (8.5-10); CREATININE 0.7 mg/dl (0.55-1.3); POTASSIUM 4.2 mmol/L (3.5-5.1)
[2023-03-20] MEDS: LABETALOL HCL 100 MG TABLET (FP) PO SCH ×2 (09:45→21:33)
[2023-03-20] MEDS: LISINOPRIL 20 MG TABLET PO SCH (09:45)
[2023-03-20] MEDS: CEFAZOLIN 1 GM in DEXTROSE 5%-WATER - 50 ML IVPB SCH ×2 (09:46→18:53)
[2023-03-20 10:43] LABS: BASO % 0.8 % (0-2.0); EOS % 1.3 % (0-4.5); HEMOGLOBIN 10.9 GM/dL (10.7-15.3); LYMPH % 6.8 % (8-40); MCH 30.6 pg (25.7-33.7); MEAN CELL VOLUME 90.1 fl (80-96); MEAN PLT VOLUME 7.1 fl (7.5-11.1); MONO % 7.5 % (3.8-10.2); NEUT % 83.6 % (42.8-82.8); PLATELET COUNT 649 10^3/uL (134-434); RBC 3.56 M/mm3 (3.60-5.2); RDW 14.9 % (11.6-15.6); WHITE BLOOD COUNT 13.4 K/mm3 (4.0-10.0)
[2023-03-20] MEDS: MOMETASONE FUROATE 220 MCG/IH INHALER IH SCH (21:33)
[2023-03-21] MEDS: CEFAZOLIN 1 GM in DEXTROSE 5%-WATER - 50 ML IVPB SCH ×2 (02:00→16:08)
[2023-03-21] MEDS: DEXTROSE 5%-0.45% SALINE 1,000 ML IV SCH ×2 (04:00→19:02)
[2023-03-21] MEDS: LEVOTHYROXINE NA 100 MCG TABLET (FP) PO SCH (06:09)
[2023-03-21 08:45] LABS: ALBUMIN 2.7 g/dl (3.4-5.0); BILIRUBIN,TOTAL 0.8 mg/dl (0.2-1); CALCIUM 8.6 mg/dl (8.5-10); CREATININE 0.7 mg/dl (0.55-1.3); POTASSIUM 4.1 mmol/L (3.5-5.1); TOT PROT 5.4 g/dl (6.4-8.2)
[2023-03-21] MEDS ORDERED: BUPIVACAINE HCL/PF 0.5% (5 MG/ML) 30 ML VIAL IJ ONE (09:18)
[2023-03-21] MEDS ORDERED: BUPIVACAINE LIPOSOME/PF (EXPAREL) 266 MG/20 ML VIAL ONE (09:19)
[2023-03-21] MEDS ORDERED: MIDAZOLAM HCL 2 MG/2 ML SINGLE DOSE VIAL ONE ×5 (09:20→12:25)
[2023-03-21] MEDS ORDERED: BUPIVACAINE HCL/PF 0.5% (5MG/ML) 10 ML VIAL ONE (09:23)
[2023-03-21] MEDS ORDERED: ONDANSETRON 4 MG/2 ML VIAL ONE (10:46)
[2023-03-21] MEDS ORDERED: KETOROLAC TROMETHAMINE 30 MG/1 ML VIAL ONE (10:46)
[2023-03-21] MEDS ORDERED: SODIUM CHLORIDE 0.9% P/F 10 ML VIAL IJ ONE (10:46)
[2023-03-21] MEDS ORDERED: DEXAMETHASONE SOD PHOSPHATE 4 MG/1 ML VIAL ONE (10:46)
[2023-03-21] MEDS ORDERED: ceFAZolin SODIUM 1 GM VIAL ONE (10:46)
[2023-03-21] MEDS ORDERED: VANCOMYCIN 1,000 MG VIAL (RESTRICTED TO ID ONLY) ONE (10:46)
[2023-03-21] MEDS ORDERED: PHENYLEPHRINE HCL 10 MG/1 ML SINGLE DOSE VIAL ONE (10:46)
[2023-03-21 11:29] LABS: BASO % 0.7 % (0-2.0); EOS % 3.3 % (0-4.5); HEMATOCRIT 30.9 % (32.4-45.2); HEMOGLOBIN 10.9 GM/dL (10.7-15.3); LYMPH % 10.5 % (8-40); MCH 31.5 pg (25.7-33.7); MCHC 35.1 g/dl (32.0-36.0); MEAN CELL VOLUME 89.7 fl (80-96); MEAN PLT VOLUME 7.2 fl (7.5-11.1); MONO % 9.5 % (3.8-10.2); PLATELET COUNT 598 10^3/uL (134-434); RBC 3.45 M/mm3 (3.60-5.2); RDW 14.6 % (11.6-15.6); WHITE BLOOD COUNT 9.7 K/mm3 (4.0-10.0)
[2023-03-21] MEDS ORDERED: PROPOFOL 40 ML ONE (12:27)
[2023-03-21] MEDS ORDERED: LABETALOL HCL 5 MG/1 ML (100MG/20 ML VIAL) ONE (12:35)
[2023-03-21] MEDS ORDERED: hydrALAZINE HCL 20 MG/ML VIAL ONE (12:43)
[2023-03-21] MEDS ORDERED: MAGNESIUM HYDROX 2400MG/30ML ORAL SUSPENSION 30 ML CUP PO PRN (14:03)
[2023-03-21] MEDS ORDERED: ONDANSETRON 4 MG/2 ML VIAL IVPUSH PRN ×2 (14:03→14:04)
[2023-03-21] MEDS ORDERED: MAG HYDROX/AL HYDROX/SIMETH 30 ML UNIT-DOSE CUP PO PRN (14:03)
[2023-03-21] MEDS ORDERED: LACTATED RINGERS SOLUTION 1,000 ML IV SCH (14:15)
[2023-03-21] MEDS ORDERED: ACETAMINOPHEN INJECTION 100 ML IVPB ONE (14:49)
[2023-03-21] MEDS ORDERED: ACETAMINOPHEN 1000 MG/100 ML BAG IVPB ONE (15:00)
[2023-03-21] MEDS ORDERED: CEFAZOLIN SODIUM 2 GM in DEXTROSE 5%-WATER 100 ML IVPB SCH (15:00)
[2023-03-21] MEDS: LISINOPRIL 20 MG TABLET PO SCH (15:30)
[2023-03-21] MEDS: LABETALOL HCL 100 MG TABLET (FP) PO SCH ×2 (15:30→22:02)
[2023-03-21] MEDS: oxyCODONE HCL 5 MG TABLET PO PRN (16:05)
[2023-03-21] MEDS: CEFAZOLIN SODIUM 2 GM in DEXTROSE 5%-WATER 100 ML IVPB SCH (18:05)
[2023-03-21] MEDS: KETOROLAC TROMETHAMINE 30 MG/1 ML VIAL IVPUSH SCH (18:13)
[2023-03-21] MEDS: LACTATED RINGERS SOLUTION 1,000 ML IV SCH (19:03)
[2023-03-21] MEDS: ASPIRIN 81 MG CHEWABLE TABLETS PO SCH (21:58)
[2023-03-21] MEDS: ACETAMINOPHEN 500 MG TABLET (FP) PO SCH (21:58)
[2023-03-21] MEDS: SENNOSIDES/DOCUSATE COMBO (SENNA PLUS) TABLET (UD) PO SCH (21:59)
[2023-03-21] MEDS ORDERED: CELECOXIB 200 MG CAPSULE PO SCH (22:00)
[2023-03-21] MEDS: oxyCODONE HCL 10 MG SUSTAINED ACTING TABLET PO SCH (22:00)
[2023-03-22] MEDS: CEFAZOLIN SODIUM 2 GM in DEXTROSE 5%-WATER 100 ML IVPB SCH ×3 (01:57→17:49)
[2023-03-22] MEDS: MOMETASONE FUROATE 220 MCG/IH INHALER IH SCH ×2 (01:58→21:33)
[2023-03-22] MEDS: KETOROLAC TROMETHAMINE 30 MG/1 ML VIAL IVPUSH SCH (01:58)
[2023-03-22] MEDS: LEVOTHYROXINE NA 100 MCG TABLET (FP) PO SCH (06:40)
[2023-03-22] MEDS: ACETAMINOPHEN 500 MG TABLET (FP) PO SCH ×3 (06:40→17:48)
[2023-03-22] MEDS: oxyCODONE HCL 5 MG TABLET PO PRN ×2 (06:49→19:00)
[2023-03-22 07:30] LABS: HEMATOCRIT 31.4 % (32.4-45.2); HEMOGLOBIN 10.1 G/dL (10.7-15.3); MCH 30.7 pg (25.7-33.7); MCHC 32.2 g/dl (32.0-36.0); MEAN CELL VOLUME 95.3 fl (80-96); MEAN PLT VOLUME 7.1 fl (7.5-11.1); PLATELET COUNT 472.8 10^3/uL (134-434); RBC 3.29 10^6/uL (3.60-5.2); WHITE BLOOD COUNT 11.7 10^3/uL (4.0-10.8)
[2023-03-22 07:39] LABS: CALCIUM 8.3 mg/dl (8.5-10); CREATININE 0.8 mg/dl (0.55-1.3); POTASSIUM 4.2 mmol/L (3.5-5.1)
[2023-03-22] MEDS: LABETALOL HCL 100 MG TABLET (FP) PO SCH ×2 (10:32→21:29)
[2023-03-22] MEDS: ASPIRIN 81 MG CHEWABLE TABLETS PO SCH ×2 (10:33→21:29)
[2023-03-22] MEDS: LISINOPRIL 20 MG TABLET PO SCH (10:33)
[2023-03-22] MEDS: SENNOSIDES/DOCUSATE COMBO (SENNA PLUS) TABLET (UD) PO SCH ×2 (10:33→21:29)
[2023-03-22] MEDS: oxyCODONE HCL 10 MG SUSTAINED ACTING TABLET PO SCH (10:33)
[2023-03-22] MEDS: PANTOPRAZOLE 40 MG TABLET PO SCH (10:34)
[2023-03-22] MEDS: CELECOXIB 200 MG CAPSULE PO SCH (21:29)
[2023-03-22] MEDS: DOCUSATE SODIUM 100 MG CAPSULE (FP) PO SCH (21:29)
[2023-03-22] MEDS: LACTOBACILLUS ACIDOPHILUS 1 TABLET PO SCH (21:29)
[2023-03-22] MEDS: LACTATED RINGERS SOLUTION 1,000 ML IV SCH (21:32)
[2023-03-23] MEDS: CEFAZOLIN SODIUM 2 GM in DEXTROSE 5%-WATER 100 ML IVPB SCH ×3 (02:51→17:37)
[2023-03-23] MEDS: ACETAMINOPHEN 500 MG TABLET (FP) PO SCH ×4 (04:08→17:39)
[2023-03-23] MEDS: oxyCODONE HCL 5 MG TABLET PO PRN ×4 (06:49→21:25)
[2023-03-23] MEDS: LEVOTHYROXINE NA 100 MCG TABLET (FP) PO SCH (06:50)
[2023-03-23 08:31] LABS: HEMATOCRIT 29.3 % (32.4-45.2); HEMOGLOBIN 9.4 G/dL (10.7-15.3); MCH 30.4 pg (25.7-33.7); MEAN CELL VOLUME 94.7 fl (80-96); MEAN PLT VOLUME 7.5 fl (7.5-11.1); PLATELET COUNT 525.4 10^3/uL (134-434); RBC 3.09 10^6/uL (3.60-5.2); WHITE BLOOD COUNT 9.6 10^3/uL (4.0-10.8)
[2023-03-23] MEDS: CELECOXIB 200 MG CAPSULE PO SCH (10:18)
[2023-03-23] MEDS: ASPIRIN 81 MG CHEWABLE TABLETS PO SCH ×2 (10:18→21:15)
[2023-03-23] MEDS: LABETALOL HCL 100 MG TABLET (FP) PO SCH ×2 (10:18→21:16)
[2023-03-23] MEDS: LACTOBACILLUS ACIDOPHILUS 1 TABLET PO SCH ×2 (10:19→21:15)
[2023-03-23] MEDS: LISINOPRIL 20 MG TABLET PO SCH (10:19)
[2023-03-23] MEDS: SENNOSIDES/DOCUSATE COMBO (SENNA PLUS) TABLET (UD) PO SCH ×3 (10:20→21:22)
[2023-03-23] MEDS: PANTOPRAZOLE 40 MG TABLET PO SCH (10:21)
[2023-03-23] MEDS: LACTATED RINGERS SOLUTION 1,000 ML IV SCH (17:51)
[2023-03-23] MEDS: DOCUSATE SODIUM 100 MG CAPSULE (FP) PO SCH ×2 (21:15→21:21)
[2023-03-23] MEDS: CELECOXIB 100 MG CAPSULE PO SCH (21:15)
[2023-03-23] MEDS: MOMETASONE FUROATE 220 MCG/IH INHALER IH SCH (21:17)
[2023-03-24] MEDS: ACETAMINOPHEN 500 MG TABLET (FP) PO SCH ×5 (00:18→23:30)
[2023-03-24] MEDS: CEFAZOLIN SODIUM 2 GM in DEXTROSE 5%-WATER 100 ML IVPB SCH ×3 (01:35→18:23)
[2023-03-24] MEDS: DEXTROSE 5%-0.45% SALINE 1,000 ML IV SCH (01:35)
[2023-03-24] MEDS: LEVOTHYROXINE NA 100 MCG TABLET (FP) PO SCH (06:26)
[2023-03-24] MEDS: PANTOPRAZOLE 40 MG TABLET PO SCH (09:39)
[2023-03-24] MEDS: LISINOPRIL 20 MG TABLET PO SCH (09:39)
[2023-03-24] MEDS: LABETALOL HCL 100 MG TABLET (FP) PO SCH ×2 (09:39→21:20)
[2023-03-24] MEDS: SENNOSIDES/DOCUSATE COMBO (SENNA PLUS) TABLET (UD) PO SCH ×2 (09:39→21:20)
[2023-03-24] MEDS: LACTOBACILLUS ACIDOPHILUS 1 TABLET PO SCH ×2 (09:40→21:20)
[2023-03-24] MEDS: oxyCODONE HCL 5 MG TABLET PO PRN ×3 (09:40→23:28)
[2023-03-24] MEDS: ASPIRIN 81 MG CHEWABLE TABLETS PO SCH ×2 (09:40→21:22)
[2023-03-24] MEDS: CELECOXIB 100 MG CAPSULE PO SCH ×2 (09:40→21:20)
[2023-03-24] MEDS: LACTATED RINGERS SOLUTION 1,000 ML IV SCH (14:39)
[2023-03-24] MEDS: DOCUSATE SODIUM 100 MG CAPSULE (FP) PO SCH (21:20)
[2023-03-24] MEDS: MOMETASONE FUROATE 220 MCG/IH INHALER IH SCH (21:23)
[2023-03-25] MEDS: DEXTROSE 5%-0.45% SALINE 1,000 ML IV SCH (01:05)
[2023-03-25] MEDS: CEFAZOLIN SODIUM 2 GM in DEXTROSE 5%-WATER 100 ML IVPB SCH ×3 (01:05→18:01)
[2023-03-25] MEDS: LEVOTHYROXINE NA 100 MCG TABLET (FP) PO SCH (06:26)
[2023-03-25] MEDS: ACETAMINOPHEN 500 MG TABLET (FP) PO SCH ×4 (06:26→23:54)
[2023-03-25 08:18] LABS: ALBUMIN 2.6 g/dl (3.4-5.0); BILIRUBIN,TOTAL 0.2 mg/dl (0.2-1); CALCIUM 8.5 mg/dl (8.5-10); CREATININE 0.7 mg/dl (0.55-1.3); POTASSIUM 4.5 mmol/L (3.5-5.1); TOT PROT 5.3 g/dl (6.4-8.2)
[2023-03-25] MEDS: LACTOBACILLUS ACIDOPHILUS 1 TABLET PO SCH ×2 (09:55→21:32)
[2023-03-25] MEDS: PANTOPRAZOLE 40 MG TABLET PO SCH (09:56)
[2023-03-25] MEDS: SENNOSIDES/DOCUSATE COMBO (SENNA PLUS) TABLET (UD) PO SCH ×2 (09:56→21:33)
[2023-03-25] MEDS: LISINOPRIL 20 MG TABLET PO SCH (09:56)
[2023-03-25] MEDS: CELECOXIB 100 MG CAPSULE PO SCH ×2 (09:56→21:31)
[2023-03-25] MEDS: LABETALOL HCL 100 MG TABLET (FP) PO SCH ×2 (09:56→21:32)
[2023-03-25] MEDS: ASPIRIN 81 MG CHEWABLE TABLETS PO SCH ×2 (09:59→21:32)
[2023-03-25 10:05] LABS: EOS % 12.8 % (0-4.5); HEMATOCRIT 29.1 % (32.4-45.2); HEMOGLOBIN 9.6 GM/dL (10.7-15.3); LYMPH % 15.6 % (8-40); MCH 29.6 pg (25.7-33.7); MCHC 33.1 g/dl (32.0-36.0); MEAN CELL VOLUME 89.5 fl (80-96); MEAN PLT VOLUME 7.1 fl (7.5-11.1); MONO % 6.8 % (3.8-10.2); NEUT % 63.8 % (42.8-82.8); PLATELET COUNT 502 10^3/uL (134-434); RBC 3.25 M/mm3 (3.60-5.2); RDW 14.6 % (11.6-15.6); WHITE BLOOD COUNT 8.1 K/mm3 (4.0-10.0)
[2023-03-25] MEDS: MOMETASONE FUROATE 220 MCG/IH INHALER IH SCH (21:32)
[2023-03-25] MEDS: DOCUSATE SODIUM 100 MG CAPSULE (FP) PO SCH (21:33)
[2023-03-25] MEDS: oxyCODONE HCL 5 MG TABLET PO PRN (23:55)
[2023-03-26] MEDS: CEFAZOLIN SODIUM 2 GM in DEXTROSE 5%-WATER 100 ML IVPB SCH ×3 (01:17→18:09)
[2023-03-26] MEDS: LEVOTHYROXINE NA 100 MCG TABLET (FP) PO SCH (06:56)
[2023-03-26] MEDS: ACETAMINOPHEN 500 MG TABLET (FP) PO SCH ×3 (06:56→18:25)
[2023-03-26] MEDS: LACTOBACILLUS ACIDOPHILUS 1 TABLET PO SCH ×2 (10:24→21:38)
[2023-03-26] MEDS: LISINOPRIL 20 MG TABLET PO SCH (10:24)
[2023-03-26] MEDS: PANTOPRAZOLE 40 MG TABLET PO SCH (10:24)
[2023-03-26] MEDS: LABETALOL HCL 100 MG TABLET (FP) PO SCH ×2 (10:24→21:38)
[2023-03-26] MEDS: CELECOXIB 100 MG CAPSULE PO SCH ×2 (10:24→21:38)
[2023-03-26] MEDS: SENNOSIDES/DOCUSATE COMBO (SENNA PLUS) TABLET (UD) PO SCH ×2 (10:24→21:42)
[2023-03-26] MEDS: ASPIRIN 81 MG CHEWABLE TABLETS PO SCH ×2 (10:24→21:38)
[2023-03-26] MEDS: DOCUSATE SODIUM 100 MG CAPSULE (FP) PO SCH (21:41)
[2023-03-26] MEDS: MOMETASONE FUROATE 220 MCG/IH INHALER IH SCH (21:42)
[2023-03-27] MEDS: ACETAMINOPHEN 500 MG TABLET (FP) PO SCH ×4 (00:23→18:17)
[2023-03-27 00:27] VITALS: RESP 18
[2023-03-27] MEDS: CEFAZOLIN SODIUM 2 GM in DEXTROSE 5%-WATER 100 ML IVPB SCH ×3 (01:51→18:17)
[2023-03-27] MEDS: oxyCODONE HCL 5 MG TABLET PO PRN ×2 (06:28→10:05)
[2023-03-27] MEDS: LEVOTHYROXINE NA 100 MCG TABLET (FP) PO SCH (06:29)
[2023-03-27] MEDS: PANTOPRAZOLE 40 MG TABLET PO SCH (09:57)
[2023-03-27] MEDS: CELECOXIB 100 MG CAPSULE PO SCH ×2 (09:57→21:40)
[2023-03-27] MEDS: ASPIRIN 81 MG CHEWABLE TABLETS PO SCH ×2 (09:57→21:40)
[2023-03-27] MEDS: LABETALOL HCL 100 MG TABLET (FP) PO SCH ×2 (09:57→21:40)
[2023-03-27] MEDS: LACTOBACILLUS ACIDOPHILUS 1 TABLET PO SCH ×2 (09:57→21:40)
[2023-03-27] MEDS: LISINOPRIL 20 MG TABLET PO SCH (09:58)
[2023-03-27] MEDS: SENNOSIDES/DOCUSATE COMBO (SENNA PLUS) TABLET (UD) PO SCH ×2 (09:58→22:04)
[2023-03-27] MEDS: DOCUSATE SODIUM 100 MG CAPSULE (FP) PO SCH (21:40)
[2023-03-27] MEDS: MOMETASONE FUROATE 220 MCG/IH INHALER IH SCH (22:04)
[2023-03-28] MEDS: ACETAMINOPHEN 500 MG TABLET (FP) PO SCH ×4 (00:21→18:56)
[2023-03-28] MEDS: CEFAZOLIN SODIUM 2 GM in DEXTROSE 5%-WATER 100 ML IVPB SCH ×3 (01:37→18:56)
[2023-03-28] MEDS: LEVOTHYROXINE NA 100 MCG TABLET (FP) PO SCH (06:08)
[2023-03-28] MEDS: PANTOPRAZOLE 40 MG TABLET PO SCH (10:17)
[2023-03-28] MEDS: CELECOXIB 100 MG CAPSULE PO SCH ×2 (10:17→20:59)
[2023-03-28] MEDS: LABETALOL HCL 100 MG TABLET (FP) PO SCH ×2 (10:17→20:59)
[2023-03-28] MEDS: ASPIRIN 81 MG CHEWABLE TABLETS PO SCH ×2 (10:17→20:59)
[2023-03-28] MEDS: LISINOPRIL 20 MG TABLET PO SCH (10:17)
[2023-03-28] MEDS: LACTOBACILLUS ACIDOPHILUS 1 TABLET PO SCH ×2 (10:17→20:59)
[2023-03-28] MEDS: SENNOSIDES/DOCUSATE COMBO (SENNA PLUS) TABLET (UD) PO SCH (10:18)
[2023-03-28] MEDS: MOMETASONE FUROATE 220 MCG/IH INHALER IH SCH (21:00)
[2023-03-29] MEDS: SENNOSIDES/DOCUSATE COMBO (SENNA PLUS) TABLET (UD) PO SCH ×2 (00:36→09:43)
[2023-03-29] MEDS: DOCUSATE SODIUM 100 MG CAPSULE (FP) PO SCH (00:37)
[2023-03-29] MEDS: CEFAZOLIN SODIUM 2 GM in DEXTROSE 5%-WATER 100 ML IVPB SCH (01:49)
[2023-03-29] MEDS: ACETAMINOPHEN 500 MG TABLET (FP) PO SCH ×2 (06:13)
[2023-03-29] MEDS: LEVOTHYROXINE NA 100 MCG TABLET (FP) PO SCH (06:13)
[2023-03-29 08:37] LABS: CALCIUM 8.6 mg/dl (8.5-10); CREATININE 0.8 mg/dl (0.55-1.3); MAGNESIUM 1.9 mg/dL (1.8-2.4); PHOSPHOROUS 3.6 mg/dl (2.5-4.9); POTASSIUM 4.5 mmol/L (3.5-5.1)
[2023-03-29 09:31] VITALS: BP 152/63; PULSE 68; TEMP 98
[2023-03-29] MEDS: ASPIRIN 81 MG CHEWABLE TABLETS PO SCH (09:41)
[2023-03-29] MEDS: CELECOXIB 100 MG CAPSULE PO SCH (09:41)
[2023-03-29] MEDS: LABETALOL HCL 100 MG TABLET (FP) PO SCH (09:41)
[2023-03-29] MEDS: LACTOBACILLUS ACIDOPHILUS 1 TABLET PO SCH (09:42)
[2023-03-29] MEDS: LISINOPRIL 20 MG TABLET PO SCH (09:43)
[2023-03-29] MEDS: PANTOPRAZOLE 40 MG TABLET PO SCH (09:43)
[2023-03-29] MEDS ORDERED: AMOX TR/POT CLAV 500MG/125MG TABLETS (FP) PO SCH (10:00)
[2023-03-29 10:31] LABS: BASO % 0.5 % (0-2.0); EOS % 9.9 % (0-4.5); HEMATOCRIT 28.9 % (32.4-45.2); HEMOGLOBIN 9.9 GM/dL (10.7-15.3); LYMPH % 12.7 % (8-40); MCH 30.6 pg (25.7-33.7); MCHC 34.2 g/dl (32.0-36.0); MEAN CELL VOLUME 89.5 fl (80-96); MEAN PLT VOLUME 6.7 fl (7.5-11.1); MONO % 7.2 % (3.8-10.2); NEUT % 69.7 % (42.8-82.8); PLATELET COUNT 549 10^3/uL (134-434); RBC 3.23 M/mm3 (3.60-5.2); RDW 15.3 % (11.6-15.6); WHITE BLOOD COUNT 9.2 K/mm3 (4.0-10.0)
== END 2023-03-29 12:00 | DRG 857 ==
LOC: FER 17:36 → FM/S 21:28 → OBSVTOIN 03-22 14:57
PROVIDERS: ADMIT Internal Medicine; ATTEND Internal Medicine
PROC: 0SBC0ZZ Excision of Right Knee Joint, Open Approach (ICD-10-PCS; 2023-03-21)
PROC: 0QDD0ZZ Extraction of Right Patella, Open Approach (ICD-10-PCS; 2023-03-21)
PROC: 0JQN0ZZ Repair Right Lower Leg Subcutaneous Tissue and Fascia, Open Approach (ICD-10-PCS; 2023-03-21)
PROC: 0QSG04Z Reposition Right Tibia with Internal Fixation Device, Open Approach (ICD-10-PCS; principal; 2023-03-21 10:52)
DX: T81.49XA Infection following a procedure, other surgical site, initial encounter (principal); E87.1 Hypo-osmolality and hyponatremia; T81.31XA Disruption of external operation (surgical) wound, not elsewhere classified, initial encounter; S82.231A Displaced oblique fracture of shaft of right tibia, initial encounter for closed fracture; I10 Essential (primary) hypertension; E03.9 Hypothyroidism, unspecified; J45.909 Unspecified asthma, uncomplicated; K21.9 Gastro-esophageal reflux disease without esophagitis; E78.5 Hyperlipidemia, unspecified; Y83.9 Surgical procedure, unspecified as the cause of abnormal reaction of the patient, or of later complication, without mention of misadventure at the time of the procedure; X58.XXXA Exposure to other specified factors, initial encounter; Y93.9 Activity, unspecified; Y92.89 Other specified places as the place of occurrence of the external cause; Y99.9 Unspecified external cause status
CPT/HCPCS: 0241U-QW; 36415; 71045-TC-FY; 73560-TC-RT-FY; 80048; 80053; 83735; 84100; 85025; 85027; 85610; 85730; 86850; 86900; 86901; 87040; 87070; 87102; 87116; 87186; 87205; 87206; 87210; 93005; 94760; 99285-25; C1713; C1776; C1889; G0378